=== PATIENT | female | born 1955 | race Caucasian/White ===

== ENCOUNTER 2021-08-28 18:29 | Emergency (ER) | payer MEDICARE, OTHER ==
[~2021-08-28] VITALS: Ht 160 cm; Wt 59.4 kg
--- NOTE | 2021-08-28 19:35 | NUR ---
Recieved report from full charge bookkeeper. Pt had just arrived and not much was known about her hx but the EDMD had seen her and was in the process of treating her.
--- NOTE | 2021-08-28 19:35 | NUR ---
At pt bedside for PE. Pts is otherwise healthy with no major medical issues. PE WNL, VSS, Pt aaox4 and anxious to be DCed home.
--- NOTE | 2021-08-28 20:08 | NUR ---
Dr. Rodriguez at bedside for MSE.
--- NOTE | 2021-08-28 20:10 | NUR ---
[facility] ordered Floroscence staining tray to be set up in room 3 to R/O FB or corneal abrasion. Tray set up with one [id number] and UV lamp, lights turned off. Pt lying flat on gurney in supine pos awaiting procedure. Addendum: 08/28/21 at 2254 by [email or web address] Please disregard last note, was charted in error on wrong pt.
[2021-08-28] MEDS ORDERED: SILVER SULFADIAZINE 1% CREAM 50 GM TP ONE (20:30)
[2021-08-28] MEDS ORDERED: SULF1TAB48 PO (20:32)
[2021-08-28] MEDS ORDERED: SILVER SULFADIAZINE 1% CREAM 25 GM TUBE TP ONE (21:00)
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
--- NOTE | 2021-08-28 21:00 | NUR ---
Infected wounds on Rt forearm cleaned with 2 CHG swabs, then silvadine liberally applied and dress with adaptix and large boarder gauze. Pt has goood [facility] a and p application of wouond dressing. Pt given rest of silvadine tube and extra dressing supplies per her request. I made sure to insurance was billed for all the supplies given to her.
[2021-08-28 22:44] VITALS: BP 128/78
== END 2021-08-28 21:00 | disposition home or self-care (01) ==
LOC: ER 18:35
DX: L98.499 Non-pressure chronic ulcer of skin of other sites with unspecified severity (principal); E11.9 Type 2 diabetes mellitus without complications; F17.210 Nicotine dependence, cigarettes, uncomplicated
CPT/HCPCS: 87070; A4663

== ENCOUNTER 2025-06-22 21:39 | Inpatient (IN) | payer MEDICARE, OTHER ==
[~2025-06-22] VITALS: Ht 160 cm; Wt 86.4 kg
[~2025-06-22 21:39] MED LIST: SULF1TAB48 PO
[2025-06-22] MEDS ORDERED: KETOROLAC TROMETHAMINE 15 MG INJ ONE (22:16)
[2025-06-22] MEDS ORDERED: HYDROCODONE/APAP 5-325MG TABLET ONE (22:16)
[2025-06-22] MEDS: HYDROCODONE/APAP 5-325MG TABLET PO ONE (22:24)
[2025-06-22] MEDS ORDERED: BACITRACIN ZINC OINT 15 GM TUBE TOP STA (22:24)
[2025-06-22] MEDS: KETOROLAC TROMETHAMINE 15 MG INJ IVP ONE (22:24)
[2025-06-22] MEDS ORDERED: SULFAMETH/TRIMETH 800/160 MG TABLET PO ONE (22:30)
[2025-06-22 23:03] LABS: CREATININE 1.9 mg/dL (0.6-1.3); SODIUM SERUM 137 mmol/L (136-145); UREA NITROGEN, BLOOD 44 mg/dL (7-18)
[2025-06-22 23:07] LABS: PLATELET COUNT (AUTO) 550 K/uL (179-408); RED BLOOD CELL COUNT(AUTO) 3.44 MIL/uL (3.63-4.92); RED CELL DISTRIBUTION WIDTH 19.8 % (12.3-17.7); WHITE BLOOD COUNT (AUTO) 20.1 K/uL (3.8-11.8)
[2025-06-22 23:08] LABS: ASPARTATE AMINOTRANSFERASE 16 U/L (15-37); TOTAL PROTEIN, SERUM 8.7 g/dL (6.4-8.2)
[2025-06-22 23:11] LABS: LACTIC ACID 2.0 mmol/L (0.4-2.0)
[2025-06-22] MEDS ORDERED: CEFEPIME HCL 2 GM VIAL ONE (23:26)
[2025-06-22] MEDS ORDERED: VANCOMYCIN IV 200 ML ONE (23:26)
[2025-06-22 23:40] LABS: EOSINOPHILS % (MANUAL) 1 % (0-8); LYMPHOCYTES % (MANUAL) 9 % (20-40); MONOCYTES % (MANUAL) 6 % (2-10); NEUTROPHILS % (MANUAL) 84 % (42-75)
[2025-06-22] MEDS: HYDROMORPHONE 1 MG/1 ML DISP.SYRIN IV ONE (23:40)
[2025-06-22 23:41] LABS: PLATELET ESTIMATE INCREASED
[2025-06-22] MEDS: POTASSIUM CHLORIDE 20 MEQ TAB.PRT.SR PO ONE (23:42)
[2025-06-22] MEDS: CEFEPIME (MAXEPIME) 2 G in IV DEXTROSE 5% 100 ML IV ONE (23:42)
[2025-06-22] MEDS: IV NS 1000 ML 1,000 ML IV ONE (23:42)
[2025-06-23] MEDS: VANCOMYCIN IV 1,000 MG in IV DEXTROSE 5% 250 ML IV ONE (00:41)
[2025-06-23] MEDS ORDERED: ACETAMINOPHEN 325 MG TABLET PO PRN (01:00)
[2025-06-23] MEDS ORDERED: MAGNESIUM HYDROXIDE 30 ML LIQUID UDC PO PRN (01:00)
[2025-06-23] MEDS ORDERED: DEXTROSE 50% 50 ML DISP.SYRIN IV PRN (01:00)
[2025-06-23] MEDS ORDERED: ONDANSETRON 4 MG/2 ML VIAL IV PRN (01:00)
[2025-06-23 02:26] VITALS: BP 107/48
[2025-06-23] MEDS: IV NS 1000 ML 1,000 ML IV SCH (03:20)
[2025-06-23 04:00] VITALS: BP 135/68; TEMP 97.6; O2SAT 100
[2025-06-23] MEDS: HYDROCODONE/APAP 5-325MG TABLET PO PRN (04:57)
[2025-06-23] MEDS: PANTOPRAZOLE SODIUM 40 MG TABLET.DR PO SCH (06:25)
[2025-06-23] MEDS: BLOOD SUGAR DIAGNOSTIC 1 EACH STRIP VI SCH (06:30)
[2025-06-23 07:53] VITALS: BP 143/60; TEMP 97.7; O2SAT 99
[2025-06-23 07:56] LABS: PLATELET COUNT (AUTO) 414 K/uL (179-408); RED BLOOD CELL COUNT(AUTO) 3.02 MIL/uL (3.63-4.92); RED CELL DISTRIBUTION WIDTH 19.7 % (12.3-17.7); WHITE BLOOD COUNT (AUTO) 15.7 K/uL (3.8-11.8)
[2025-06-23 07:57] LABS: IRON, SERUM 13 ug/dL (50-175)
[2025-06-23 08:35] LABS: CREATININE 1.9 mg/dL (0.6-1.3); SODIUM SERUM 137 mmol/L (136-145); UREA NITROGEN, BLOOD 46 mg/dL (7-18)
[2025-06-23 10:03] LABS: EOSINOPHILS % (MANUAL) 2 % (0-8); LYMPHOCYTES % (MANUAL) 5 % (20-40); MONOCYTES % (MANUAL) 5 % (2-10); NEUTROPHILS % (MANUAL) 88 % (42-75)
[2025-06-23 10:04] LABS: PLATELET ESTIMATE INCREASED
[2025-06-23] MEDS ORDERED: CEFEPIME (MAXEPIME) 1 G in IV DEXTROSE 5% 50 ML IV SCH (11:30)
[2025-06-23] MEDS: MAGNESIUM OXIDE 400 MG TABLET PO ONE (13:00)
[2025-06-23] MEDS: HYDROMORPHONE 1 MG/1 ML DISP.SYRIN IV PRN (17:41)
[2025-06-23] MEDS: INSULIN REGULAR, HUMAN 1000 UNIT/10 ML VIAL SQ PRN (17:53)
[2025-06-23 19:00] VITALS: BP 132/53; O2SAT 97
[2025-06-23] MEDS: MEGESTROL ACETATE 400 MG/10 ML LIQUID UDC PO SCH (21:00)
[2025-06-23] MEDS: CEFEPIME (MAXEPIME) 1 G in IV DEXTROSE 5% 50 ML IV SCH (23:00)
[2025-06-24 04:00] VITALS: BP 125/56; TEMP 98.6; O2SAT 96
[2025-06-24 06:44] LABS: PLATELET COUNT (AUTO) 489 K/uL (179-408); RED BLOOD CELL COUNT(AUTO) 3.01 MIL/uL (3.63-4.92); RED CELL DISTRIBUTION WIDTH 19.8 % (12.3-17.7); WHITE BLOOD COUNT (AUTO) 22.8 K/uL (3.8-11.8)
[2025-06-24 06:55] LABS: ASPARTATE AMINOTRANSFERASE < 5 U/L (15-37); CREATINE KINASE, TOTAL 26 U/L (26-192); CREATININE 1.7 mg/dL (0.6-1.3); SODIUM SERUM 140 mmol/L (136-145); TOTAL PROTEIN, SERUM 7.6 g/dL (6.4-8.2); UREA NITROGEN, BLOOD 37 mg/dL (7-18)
[2025-06-24 08:51] LABS: NEUTROPHILS % (MANUAL) 90 % (42-75)
[2025-06-24 08:52] LABS: LYMPHOCYTES % (MANUAL) 4 % (20-40); MONOCYTES % (MANUAL) 6 % (2-10); PLATELET ESTIMATE INCREASED
[2025-06-24] MEDS: MAGNESIUM OXIDE 400 MG TABLET PO ONE (11:00)
[2025-06-24] MEDS: ALBUMIN HUMAN 25% 50 ML IV ONE (11:00)
[2025-06-24 11:01] VITALS: BP 137/67; TEMP 97.6; O2SAT 96
[2025-06-24] MEDS ORDERED: VANCOMYCIN HCL 750 MG in IV DEXTROSE 5% 250 ML IV SCH (11:30)
[2025-06-24] MEDS ORDERED: MEDIHONEY= THERAHONEY 1.5 OZ TUBE TOP SCH (11:45)
[2025-06-24] MEDS: GEL BASE NO.41 100 GM GEL..GRAM. TOP SCH (11:54)
[2025-06-24] MEDS: OXCARBAZEPINE 150 MG TABLET PO SCH (12:00)
[2025-06-24] MEDS: VANCOMYCIN HCL 750 MG in IV DEXTROSE 5% 250 ML IV ONE (13:28)
[2025-06-24] MEDS ORDERED: SOD FERRIC GLUC COMPLX/SUCROSE 125 MG in IV NORMAL SALINE 100 ML IV SCH (14:00)
[2025-06-24 15:28] VITALS: BP 130/85; TEMP 97.6; O2SAT 97
[2025-06-24] MEDS: ARGININE/GLUTAMINE/CALCIUM BMB 1 EACH POWD.PACK PO SCH (17:00)
[2025-06-24] MEDS: SOD FERRIC GLUC COMPLX/SUCROSE 125 MG in IV NORMAL SALINE 100 ML IV SCH (18:00)
[2025-06-24 20:10] VITALS: BP 133/62; TEMP 98.3; O2SAT 99
[2025-06-24] MEDS: MIRTAZAPINE 15 MG TABLET PO SCH (20:33)
[2025-06-25] VITALS (17 sets, daily range): BP systolic 136–153; BP diastolic 60–76; TEMP 97.8–98.7; O2SAT 96–100
[2025-06-25 10:04] LABS: PLATELET COUNT (AUTO) 457 K/uL (179-408); RED BLOOD CELL COUNT(AUTO) 2.73 MIL/uL (3.63-4.92); RED CELL DISTRIBUTION WIDTH 19.8 % (12.3-17.7); WHITE BLOOD COUNT (AUTO) 11.4 K/uL (3.8-11.8)
[2025-06-25 10:11] LABS: ASPARTATE AMINOTRANSFERASE 12 U/L (15-37); CREATININE 1.5 mg/dL (0.6-1.3); SODIUM SERUM 140 mmol/L (136-145); TOTAL PROTEIN, SERUM 7.2 g/dL (6.4-8.2); UREA NITROGEN, BLOOD 33 mg/dL (7-18)
[2025-06-25 10:44] LABS: EOSINOPHILS % (MANUAL) 2 % (0-8); LYMPHOCYTES % (MANUAL) 9 % (20-40); MONOCYTES % (MANUAL) 9 % (2-10); NEUTROPHILS % (MANUAL) 80 % (42-75); PLATELET ESTIMATE INCREASED
[2025-06-25 13:08] LABS: PTH, INTACT 64 pg/mL (15-65)
[2025-06-25] MEDS: SODIUM HYPOCHLORITE 0.125% (QUARTER STRENGTH) 473 ML BOTTLE TP SCH (16:08)
[2025-06-25] MEDS: VANCOMYCIN IV 1,000 MG in IV DEXTROSE 5% 250 ML IV ONE (20:33)
[2025-06-25] MEDS: SOD FERRIC GLUC COMPLX/SUCROSE 125 MG in IV NORMAL SALINE 100 ML IV SCH (20:36)
[2025-06-26 04:53] VITALS: BP 160/81; TEMP 97.8; O2SAT 98
[2025-06-26 06:54] LABS: PLATELET COUNT (AUTO) 451 K/uL (179-408); RED BLOOD CELL COUNT(AUTO) 3.61 MIL/uL (3.63-4.92); RED CELL DISTRIBUTION WIDTH 20.6 % (12.3-17.7); WHITE BLOOD COUNT (AUTO) 8.5 K/uL (3.8-11.8)
[2025-06-26 07:08] LABS: CREATININE 1.4 mg/dL (0.6-1.3); SODIUM SERUM 139 mmol/L (136-145); UREA NITROGEN, BLOOD 26 mg/dL (7-18)
[2025-06-26 07:47] VITALS: BP 158/80; TEMP 97.6; O2SAT 97
[2025-06-26 09:59] LABS: EOSINOPHILS % (MANUAL) 2 % (0-8); LYMPHOCYTES % (MANUAL) 10 % (20-40); MONOCYTES % (MANUAL) 8 % (2-10); NEUTROPHILS % (MANUAL) 80 % (42-75); PLATELET ESTIMATE INCREASED
[2025-06-26] MEDS: LIDOCAINE 5% PATCH TD SCH (10:10)
[2025-06-26 11:30] VITALS: BP 146/79; TEMP 97.7; O2SAT 97
[2025-06-26] MEDS: IV NS 1000 ML 1,000 ML IV PRN (11:30)
[2025-06-26] MEDS: CEFEPIME HCL 2 GM in IV DEXTROSE 5% 100 ML IV SCH (11:58)
[2025-06-26] MEDS: OXCARBAZEPINE 150 MG TABLET PO SCH (12:03)
[2025-06-26] MEDS: VANCOMYCIN IV 500 MG in IV DEXTROSE 5% 100 ML IV ONE (14:14)
[2025-06-26] MEDS ORDERED: OLANZAPINE ZYDIS 5 MG TAB.RAPDIS PO SCH (21:00)
[2025-06-27 18:07] LABS: A/G RATIO 0.3 (0.7-1.7); BETA GLOBULIN 1.0 g/dL (0.7-1.3); GLOBULIN, TOTAL 5.2 g/dL (2.2-3.9); M-SPIKE Not Observed g/dL (Not Observed); PROTEIN, TOTAL 6.8 g/dL (6.0-8.5)
== END 2025-06-26 14:45 | disposition left against medical advice (07) | DRG 853 ==
LOC: ER 21:42 → TELE3 06-23 00:32 → MEDSURG3 06-23 12:18
PROVIDERS: ATTEND Nurse Practitioner Acute Care
PROC: 05HB33Z Insertion of Infusion Device into Right Basilic Vein, Percutaneous Approach (ICD-10-PCS; 2025-06-24)
PROC: 30233N1 Transfusion of Nonautologous Red Blood Cells into Peripheral Vein, Percutaneous Approach (ICD-10-PCS; 2025-06-25)
PROC: 0KBT0ZZ Excision of Left Lower Leg Muscle, Open Approach (ICD-10-PCS; principal; 2025-06-26)
DX: A41.9 Sepsis, unspecified organism (principal); E43 Unspecified severe protein-calorie malnutrition; N17.0 Acute kidney failure with tubular necrosis; R64 Cachexia; L97.322 Non-pressure chronic ulcer of left ankle with fat layer exposed; D62 Acute posthemorrhagic anemia; E88.09 Other disorders of plasma-protein metabolism, not elsewhere classified; E11.52 Type 2 diabetes mellitus with diabetic peripheral angiopathy with gangrene; L03.115 Cellulitis of right lower limb; L03.116 Cellulitis of left lower limb; L02.612 Cutaneous abscess of left foot; M86.662 Other chronic osteomyelitis, left tibia and fibula; D64.9 Anemia, unspecified; N18.9 Chronic kidney disease, unspecified; F31.9 Bipolar disorder, unspecified; F11.10 Opioid abuse, uncomplicated; L97.518 Non-pressure chronic ulcer of other part of right foot with other specified severity; L98.A31 Non-pressure chronic ulcer of right hand; L98.A21 Non-pressure chronic ulcer of right forearm; I89.0 Lymphedema, not elsewhere classified; I87.2 Venous insufficiency (chronic) (peripheral); L97.522 Non-pressure chronic ulcer of other part of left foot with fat layer exposed; E11.22 Type 2 diabetes mellitus with diabetic chronic kidney disease; E83.42 Hypomagnesemia; G89.29 Other chronic pain; R62.7 Adult failure to thrive; Z94.5 Skin transplant status; M62.59 Muscle wasting and atrophy, not elsewhere classified, multiple sites; R79.82 Elevated C-reactive protein (CRP); F17.210 Nicotine dependence, cigarettes, uncomplicated; Z53.29 Procedure and treatment not carried out because of patient's decision for other reasons; E11.621 Type 2 diabetes mellitus with foot ulcer; F10.90 Alcohol use, unspecified, uncomplicated; E11.69 Type 2 diabetes mellitus with other specified complication; Z91.199 Patient's noncompliance with other medical treatment and regimen due to unspecified reason; Z68.20 Body mass index [BMI] 20.0-20.9, adult
CPT/HCPCS: 36415; 70030-TC; 71045; 73200; 73700; 83550; 83605; 83735; 83970; 84100; 84155; 84165; 85730; 86140; 86850; 86900; 86901; 86920; 87040; A4606; A4663; A6209; G0378; J0692; J1171; J1815; J1885; J2916; J3373; J7040; J7050; J8999; P9016